=== PATIENT | male | born 1995 | race Two or more races ===

== ENCOUNTER 2021-04-05 08:00 | Outpatient (CLI) | payer SELFPAY | END 2021-04-05 23:59 | LOC: LAB.N 08:00 | PROVIDERS: ATTEND Nurse Practitioner | DX: L01.00 Impetigo, unspecified (principal) | CPT/HCPCS: 87070; 87205 ==

== ENCOUNTER 2022-05-02 12:49 | Outpatient (CLI) | payer OTHER ==
[2022-05-02 13:43] VITALS: BP 126/74
--- NOTE | 2022-05-02 13:43 | SLEEP CARE CONSULTATION ---
Information from patient questionnaire entered by Kevin Alcantar. I have reviewed and concur with the information entered by Kevin Alcantar. This document represents the service I personally performed and the decisions made by me, Mickie Boo ARNP. History of Present Illness Service Date and Time: 05/02/2022 1249 Reason for Visit: New patient Chief Complaint: reports: Snoring Date of Onset: 2-3 MONTHS Usual bedtime: 10-12PM Time it takes to fall asleep: 15-30MIN Snores at night: Yes Observed to quit breathing while asleep: No Sleeps alone due to snoring: No Number of times waking at night: 3-4 Reasons for waking at night: reports: Gasping for air, Bathroom, Other (UNKNOWN). denies: Choking, Snoring Toss, Turn, or Twitch while sleeping: Yes Recalls having dreams: Yes (rarely) Usually gets out of bed at: 615AM; weekends 09-1000 Feels refreshed in the morning: No (somewhat refreshed usually) Morning headache: Yes (1-2 times a week) Sleepy or fatigued during the day: Yes Ever fallen asleep while driving: No Takes day naps: Yes (1.5-2 hours; 3 times a week) Dreams during day naps: No Prior sleep studies: No Additional HPI information: I had the pleasure of seeing JODEE ABBOTT today regarding the possibility of him having a sleep disorder. His current complaint is snoring. He states he saw his doctor about trouble sleeping and he was referred here. He has trouble fall ing asleep at night. He has been drinking a "Sleepytime tea" and getting to sleep has improved. He is waking up 3-4 times a night and sometimes this is with heart "racing" and mild shortness of air which he feels could be anxiety related. He has been told that he snores but has not been told it is very loud. - Parasomnia Symptoms Ever been unable to move upon waking from sleep: Yes (comes and goes; 5 times every 6 months) Walks in sleep: No Talks in sleep: Yes Ever acted out dreams in sleep: Yes (once in [employer] camp he sat up in bed, said something and then layed down) Ever felt weak in the knees when startled or emotional: No Bothered by creepy, crawly, restless sensations in legs: Yes (during day, sedentary and wanting to move onto something else) Problems with memory or concentration: No Subjective Initial [place] Sleepiness Scale score: 9 (05/02/22) Past Medical History Past Medical History: reports: Other (Migraines) Social History The patient's occupation is a AM. Patient is Single and lives in . Have you smoked in the past 12 months: No Alcohol use: Yes Alcohol amount and frequency: 2-4 DRINKS A WEEK Caffeine use: Yes Caffeine amount and frequency: 1 DRINK DAILY Family History Family history of sleep disordered breathing: No Allergies and Home Medications Known drug allergies: No Drug allergies reviewed: Yes Home medication list reviewed: Yes Allergy and home medication list: Medications: Sumatriptan Vitamins Review of Systems Weight gain over past 5 years: 40 Cardiovascular: denies: high blood pressure Gastrointestinal: denies: heartburn Neurological: reports: headaches Psychiatric: denies: Attention Deficit Hyperactivity, anxiety, depression Ear/Nose/Throat: reports: wisdom teeth removed. denies: tonsillectomy Endocrine: denies: thyroid disease Musculoskeletal: reports: muscle pain or cramping Physical Exam Vital signs obtained and entered by: KEVIN Weldon MA Blood Pressure: 126/74 (LEFT ARM) Cuff size: regular Heart Rate: 76 O2 Saturation: 98 Height: 5 ft 9 in Weight: 185 lb 6.4 oz Body Mass Index: 27.3 BMI Classification: Overweight Neck circumference: 16.25 Mouth and throat: narrow oropharynx Soft palate: long Hard palate: normal Uvula: normal, long Uvula visualization: 25% Mallampati Class III Tongue: enlarged in size with teeth monk on lateral edges Tonsils: 2+ Neck: normal w/o lymphadenopathy or thyromegaly Heart: regular rate and rhythm, murmur (possible) Lungs: clear bilaterally Impression and Plan 1. Suspected Obstructive Sleep Apnea-Hypopnea Syndrome, as suggested by a history of loud and irregular snoring, morning headache, frequent awakening during the night and unrefreshed sleep. Narrow oropharynx and obesity are common predisposing factors for obstructive sleep apnea-hypopnea syndrome. I recommend proceeding to polysomnography to confirm the diagnosis and to assess severity. If the patient has significant sleep disordered breathing, a manual CPAP titration study will also be performed to find the optimal treatment pressure. I informed the patient of what the sleep studies involve and after some discussion, obtained agreement to proceed. The pathophysiology of obstructive sleep apnea-hypopnea syndrome was discussed with the patient and health risks of cardiovascular and cerebrovascular disease if not treated. Risks of drowsy driving discussed in detail and patient advised to avoid long distance driving and to line puller at the first sign of drowsiness. Patient agreed to plan. * Schedule polysomnography * Avoid long distance driving or driving when feeling sleepy. * Avoid alcohol, sedative and muscle relaxant around bedtime. * Attempt to lose weight. * Review instructions provided by trained office staff on how to prepare for the sleep study. * Return for follow-up after sleep study completed. Counseling Topics: Weight loss health impact Visit Type: In Office Time Spent with Patient (minutes): 31 Provider Statement: I spent 100% of the Face to Face Visit with the patient with greater than 50% spent counseling the patient and coordination of care.
== END 2022-05-02 12:50 | disposition home or self-care (01) ==
LOC: SC 12:49
PROVIDERS: ATTEND Nurse Practitioner Family
DX: R06.83 Snoring (principal); G47.8 Other sleep disorders; R53.83 Other fatigue; E66.3 Overweight; Z68.27 Body mass index [BMI] 27.0-27.9, adult
CPT/HCPCS: 99203; 99212

== ENCOUNTER 2022-06-07 09:28 | Outpatient (CLI) | payer OTHER | END 2022-06-07 09:29 | disposition home or self-care (01) | LOC: SC 09:28 | PROVIDERS: ATTEND Nurse Practitioner Family | DX: G47.33 Obstructive sleep apnea (adult) (pediatric) (principal) | CPT/HCPCS: 95806 ==

== ENCOUNTER 2022-06-20 09:16 | Outpatient (CLI) | payer OTHER ==
[2022-06-20 09:54] VITALS: BP 112/70
--- NOTE | 2022-06-20 09:54 | SLEEP CARE CONSULTATION ---
Information from patient questionnaire entered by Arcelia Alcantar. I have reviewed and concur with the information entered by Arcelia Alcantar. This document represents the service I personally performed and the decisions made by me, Mickie Boo ARNP. History of Present Illness Service Date and Time: 06/20/2022 0916 Initial [place] Sleepiness Scale score: 9 (05/02/22) Current [place] Sleepiness Scale score: 9 (06/20/22) Additional HPI information: JODEE ABBOTT returns for follow up and results of the recently performed home sleep study. I explained the pathophysiology behind obstructive sleep apnea. We then spent quite a bit of time discussing different treatment options. For mild obstructive sleep apnea, surgery and oral appliance are alternatives to nasal CPAP therapy but in moderate or severe cases, nasal CPAP is the most effective and reliable treatment. Because apnea is primarily in supine position, then positional management therapy could be effective. Methods discussed such as positioning with pillows, using a T-shirt with tennis balls in the back, or commercial products that have a pillow format on back to prevent supine sleep. I reviewed the impact of weight changes on sleep apnea and strongly recommended losing weight. After some discussion, the patient opted to go with the nasal CPAP therapy. Nasal autoCPAP set at 4-15 cmH20 will be ordered with rationale explained. A manual titration study will be ordered if unable to find optimal pressure with office adjustments. I explained how CPAP machine works and what to expect when using the machine. Using CPAP every night in order to get used to it was emphasized. Patient advised to put CPAP mask on before getting into bed so as not to fall asleep without CPAP. To assist acclimation to CPAP use, it could also be used for a short time during day while reading or watching TV. The patient was instructed to call the CPAP supplier to discuss any mechanical problem that may occur. If the mask given is uncomfortable or is difficult to keep on through the night even with adjustment, contact the CPAP supplier as many will replace with another mask style if notified before 30 days. If snoring or perceives is not getting enough air or too much air from the machine, notify this office. Patient counseled not drink alcohol less than 4 hours before bedtime as it can increase snoring and apnea. Patient was cautioned about risks of drowsy driving until sleepiness symptoms resolve. Patient denies drowsy driving. Sleep Study - Results Type of Sleep Study: Home sleep study (COMPLETED 06/07/22) Prior sleep studies: No Polysomnography/Home Sleep Study results: Physician Impression: The quality of the study is good. The length of the study is adequate (> 240 minutes). Please also see the tabulated and graphic data. 1. Obstructive Sleep Apnea-Hypopnea (ICD-10 G47.33), mild, with an AHI of 5.1/hr and yao SaO2 of 90%. During the study, the patient had 16 apneas (16 obstructive, 0 central, 0 mixed) and 26 hypopneas. The longest episode lasted 67.0 seconds. The respiratory events occurred almost exclusively during supine sleep (supine AHI was 6.2 and non-supine, 2.79). Allergies and Home Medications Known drug allergies: No Drug allergies reviewed: Yes Home medication list reviewed: Yes (no changes) Allergy and home medication list: Allergies No Known Drug Allergies Allergy (Verified 06/19/22 08:51) Review of Systems Review of systems same as previous: Yes ( no changes) Physical Exam Vital signs obtained and entered by: ARCELIA Weldon MA Blood Pressure: 112/70 (LEFT ARM) Cuff size: regular Heart Rate: 62 O2 Saturation: 99 Height: 5 ft 9 in Weight: 184 lb 6.4 oz Body Mass Index: 27.2 BMI Classification: Overweight Impression and Plan 1. Obstructive Sleep Apnea-Hypopnea Syndrome, mild, with lowest oxygen saturation of 90%. Obviously this is the cause of the patients symptoms of unrefreshed sleep, and excessive daytime sleepiness. Positive pressure therapy could benefit migraines. As mentioned above, the patient will be started on nasal autoCPAP therapy with pressure set at 4-15 cmH2O. Compliance guidelines also reviewed. A copy of compliance guidelines will be given for reference at check out. Because the apnea is more severe supine, I instructed to avoid sleeping supine using pillow positioning until able to start CPAP use. * Nasal auto CPAP therapy, pressure at 4-15 cm H2O. * Attempt to lose weight. * Avoid alcohol consumption near bedtime. * Avoid supine sleep until using CPAP. * The patient is again cautioned about driving until sleepiness completely resolves. * Return one month after CPAP obtained. I will assess response to therapy and compliance at that time. Counseling Topics: Weight loss health impact Visit Type: In Office Time Spent with Patient (minutes): 22 Provider Statement: I spent 100% of the Face to Face Visit with the patient with greater than 50% spent counseling the patient and coordination of care.
== END 2022-06-20 09:17 | disposition home or self-care (01) ==
LOC: SC 09:16
PROVIDERS: ATTEND Nurse Practitioner Family
DX: G47.33 Obstructive sleep apnea (adult) (pediatric) (principal); E66.3 Overweight; Z68.27 Body mass index [BMI] 27.0-27.9, adult
CPT/HCPCS: 99212; 99213

== ENCOUNTER 2022-08-15 09:30 | Outpatient (CLI) | payer OTHER ==
--- NOTE | 2022-08-15 16:12 | XRAY Report ---
PROCEDURE: Shoulder 3 View LT INDICATIONS: PAIN IN LEFT SHOULDER TECHNIQUE: 3 views of the shoulder were acquired. COMPARISON: None. FINDINGS: Bones: No fractures or dislocations. No suspicious bony lesions. Visualized ribs appear intact. Soft tissues: No suspicious soft tissue calcifications. IMPRESSION: Unremarkable left shoulder radiographs Reviewed by: Nguyễn Callejas MD on 08/15/2022 3:11 PM AKDT Approved by: Nguyễn Callejas MD on 08/15/2022 3:11 PM AKDT Station ID: [id number]
== END 2022-08-15 09:45 | disposition home or self-care (01) ==
LOC: DI.N 09:30
PROVIDERS: ATTEND Emergency Medicine
DX: M25.512 Pain in left shoulder (principal)

== ENCOUNTER 2022-10-14 02:14 | Emergency (ER) | payer OTHER ==
--- OUTSIDE RECORDS SUMMARY | 2022-10-14 02:24 | EXTERNAL MEDICAL SUMMARY RPT | Continuity of Care Document ---
Author Name Unknown Address [address] [place] [address] Phone Organization [facility] Address [address] [place] [address] Phone Care Team Providers Care Plastic Mixer Name Role Phone Unavailable Unavailable Unavailable Luci Lomax, Chuy Unavailable Unavailable Problems date description facility 2022-08-15 00:00 Pain of left shoulder joint All 2022-08-15 00:00 Recurrent dislocation of should er region All 2022-08-15 00:00 Recurrent dislocation of joint of shoulder region All 2022-08-15 00:00 Pain in joint involving shoulde r region All 2022-08-15 00:00 Recurrent dislocation, unspecif ied shoulder All 2022-08-15 00:00 Pain in left shoulder All 2022-08-28 09:11 Unspecified dislocat ion of unspecified shoulder joint, [facility] Procedures date description facility 2022-08-15 00:00 Visit Code Hold All 2022-08-15 00:00 XR SHOULDER 2-3 VIEW All Results/Labs test date facility value unit notes Vital Signs date measurement value units 2022-08-15 00:00 BMI 26.23 kg/m2 2022-08-15 00:00 BP_diastolic 79 mmHg 2022-08-15 00:00 BP_systolic 132 mmHg 2022-08-15 00:00 heart_rate 66 /min 2022-08-15 00:00 height_metric 175.26 cm 2022-08-15 00:00 height_standard 69 in 2022-08-15 00:00 respiration_rate 16 /min 2022-08-15 00:00 temperature_metric 36.61 C 2022-08-15 00:00 temperature_standard 97.9 F 2022-08-15 00:00 weight_metric 80.29 kg 2022-08-15 00:00 weight_standard 177 lb
[2022-10-14 02:26] VITALS: BP 136/94
--- NOTE | 2022-10-14 03:13 | ED Physician Documentation ---
PD HPI SKIN - Stated complaint Stated Complaint: BLISTER RT HAND - Chief complaint Chief Complaint: Wound - History obtained from History obtained from: Patient - Additional information Additional information: HPI from patient. 5 days ago, patient had cryotherapy for cutaneous warts to several sites on bilateral hands/fingers. Presents to ED at this time due to bulla (from cryotherapy) over his right thenar eminence having become taut, painful, and surrounded by erythema and swelling. Denies fever. Review of Systems Constitutional: denies: Fever Skin: reports: Rash Musculoskeletal: reports: Extremity pain, Extremity swelling Neurologic: denies: Focal weakness, Numbness PD PAST MEDICAL HISTORY - Past Medical History Past Medical History: No - Present Medications Home Medications: Ambulatory Orders Medication Instructions Recorded Confirmed Ashwagandha Root Extract See Rx Instructions .ROUTE .COMPLEX 05/02/22 06/20/22 [Ashwagandha] Cholecalciferol [Vitamin D3] See Rx Instructions .ROUTE .COMPLEX 05/02/22 06/20/22 Multivitamin See Rx Instructions .ROUTE .COMPLEX 05/02/22 06/20/22 [place]-3/Dha/Epa/Fish Oil [Fish Oil See Rx Instructions .ROUTE .COMPLEX 05/02/22 06/20/22 1,000 mg Softgel] Zinc Gluconate [Zinc] See Rx Instructions .ROUTE .COMPLEX 05/02/22 06/20/22 Doxycycline [Vibramycin] 100 mg PO BID #14 tablet 10/14/22 - Allergies Allergies/Adverse Reactions: Allergies Allergy/AdvReac Type Severity Reaction Status Date / Time No Known Drug Allergies Allergy Verified 08/15/22 14:25 PD ED PE NORMAL - Vitals Vital signs reviewed: Yes - General General: Alert and oriented X 3, No acute distress, Well developed/nourished PD ED PE EXPANDED - Extremities MAXIM UE/Hands Visual: 1 - rash, swelling (large, tense bulla with opaque yellow fluid. there is surrounding, confluent erythema and swelling surrounding the base of the bulla over the thenar eminence), tenderness Results - Vitals Vitals: Oxygen O2 Source Room air PD Medical Decision Making - ED course Complexity details: considered differential, d/w patient ED course: Several bullae on bilateral hands/fingers. There is appearance of cellulitis surrounding the largest bulla, which is on the right hand over the thenar eminence, and this is unroofed with a #11 blade scalpel. He is given doxycycline with rx for same. Return precautions discussed, advised to follow up in 2-3 days Departure - Departure Disposition: 01 Home, Self Care Clinical Impression: Cellulitis Qualifiers: Site of cellulitis: extremity Site of cellulitis of extremity: upper extremity Laterality: right Qualified Code(s): L03.113 - Cellulitis of right upper limb Condition: Good Instructions: ED Infec Skin Cellulitis Prescriptions: Doxycycline [Vibramycin] 100 mg PO BID #14 tablet Comments: On exam, it appears that the area on your right hand where cryotherapy was applied has become infected (cellulitis). You are given the first dose of an antibiotic (doxycycline) in the emergency department, as well as a dose of ibuprofen for the pain. I have electronically submitted a prescription for a 1 week course of the antibiotic to the [facility] pharmacy in [place]. You should contact your primary care provider's office on Sunday when they open to arrange for a follow-up appointment for reevaluation; ideally, you should be reevaluated in a 3 to 5-day timeframe from today. Forms: PCP List Discharge Date/Time: 10/14/22 04:21
[2022-10-14] MEDS ORDERED: DOXYCYCLINE 100 MG TABLET PO STA (03:29)
[2022-10-14] MEDS ORDERED: IBUPROFEN 600 MG TABLET PO STA (03:54)
[2022-10-14] MEDS ORDERED: BACITRACIN ZINC OINT 1 PACKET TOP STA (03:55)
== END 2022-10-14 04:21 | disposition home or self-care (01) ==
LOC: ED 02:14
DX: L03.113 Cellulitis of right upper limb (principal)
CPT/HCPCS: 99282; 99283; A9270

== ENCOUNTER 2022-10-31 08:00 | Outpatient (CLI) | payer OTHER ==
--- NOTE | 2022-10-31 16:00 | XRAY Report ---
PROCEDURE: Tib/Fib LT INDICATIONS: REPETITIVE STRAIN INJURY OF LEFT LOWER LEG TECHNIQUE: 2 views of the tibia and fibula were acquired. COMPARISON: None. FINDINGS: Bones: No fractures or dislocations. No suspicious bony lesions. Soft tissues: No suspicious soft tissue calcifications or masses. IMPRESSION: No visualized acute fracture or dislocation. However, occult injury cannot be excluded. Recommend silvia rt interval imaging follow-up in 7-10 days as clinically indicated for additional evaluation. Reviewed by: Amber Miramontes MD on 10/31/2022 3:58 PM PDT Approved by: Amber Miramontes MD on 10/31/2022 3:58 PM PDT Station ID: [id number]
== END 2022-10-31 23:59 | disposition home or self-care (01) ==
LOC: DI.S 08:00
PROVIDERS: ATTEND Physician Assistant Medical
DX: M70.962 Unspecified soft tissue disorder related to use, overuse and pressure, left lower leg (principal)

== ENCOUNTER 2023-05-11 12:50 | Emergency (ER) | payer OTHER ==
[2023-05-11 13:17] VITALS: BP 147/68; O2SAT 99
--- NOTE | 2023-05-11 13:42 | ED Physician Documentation ---
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 He recently started a new job in the [employer] 2 weeks ago and wears a respirator most of the day. Also works around chemical fumes. He states that this improves when he leaves work and goes home. [place]. Patient is currently asymptomatic. No fevers. No chills. No cough. No congestion. No history of young cardiac disease. Patient is on any medications at home. Does not smoke. Review of Systems Constitutional: denies: Fever, Chills GI: denies: Vomiting Skin: denies: Rash Musculoskeletal: denies: Neck pain, Back pain Neurologic: denies: Headache PD PAST MEDICAL HISTORY - Past Medical History Past Medical History: Yes Neuro: Migraines - Past Surgical History Past Surgical History: Yes Ortho: Shoulder arthroplasty - Present Medications Home Medications: Ambulatory Orders Medication Instructions Recorded Confirmed Ashwagandha Root Extract See Rx Instructions .ROUTE .COMPLEX 05/02/22 06/20/22 [Ashwagandha] Cholecalciferol [Vitamin D3] See Rx Instructions .ROUTE .COMPLEX 05/02/22 06/20/22 Multivitamin See Rx Instructions .ROUTE .COMPLEX 05/02/22 06/20/22 [place]-3/Dha/Epa/Fish Oil [Fish Oil See Rx Instructions .ROUTE .COMPLEX 05/02/22 06/20/22 1,000 mg Softgel] Zinc Gluconate [Zinc] See Rx Instructions .ROUTE .COMPLEX 05/02/22 06/20/22 Doxycycline [Vibramycin] 100 mg PO BID #14 tablet 10/14/22 Albuterol Sulf [Ventolin Hfa 1 - 2 puffs INH Q4HR PRN #1 each 05/11/23 Inhaler] - Allergies Allergies/Adverse Reactions: Allergies Allergy/AdvReac Type Severity Reaction Status Date / Time No Known Drug Allergies Allergy Verified 05/11/23 13:10 - Social History Does the pt smoke?: No Smoking Status: Never smoker Does the pt drink ETOH?: Yes Does the pt have substance abuse?: No - Immunizations Immunizations are current?: Yes - POLST Patient has POLST: No PD ED PE NORMAL - Vitals Vital signs reviewed: Yes - General General: Alert and oriented X 3, No acute distress - HEENT HEENT: PERRL, Moist mucous membranes - Neck Neck: Supple, no meningeal sign - Cardiac Cardiac: RRR, Strong equal pulses - Respiratory Respiratory: No respiratory distress, Other (Mild wheeze bilaterally) - Abdomen Abdomen: Soft, Non tender, Non distended - Derm Derm: Warm and dry - Extremities Extremities: No edema, No calf tenderness / cord - Neuro Neuro: Alert and oriented X 3 - Psych Psych: Normal mood, Normal affect Results - Vitals Vitals: Vital Signs - 24 hr 05/11/23 05/11/23 13:05 13:57 Temperature 36.4 C L Heart Rate 87 82 Respiratory 20 18 Rate Blood Pressure 147/68 H O2 Saturation 99 Oxygen O2 Source Room air - EKG (time done) 1308 EKG releavant findings:: EKG personally interpreted by author of this note. Relevant findings are: Rate: Rate (enter#) (68) Rhythm: NSR [place]: Normal Intervals: Normal [place] QRS: Normal Ischemia: Other (flat twaves) PD Medical Decision Making - ED course Complexity details: reviewed results, re-evaluated patient, considered differential (No ST elevation HI, no aortic dissection, no PE, no tension pneumothorax, no aortic aneurysm), d/w patient ED course: 27-year-old male with atypical chest pain. Nonradiating. Not related to exertion. Possibly related to having to wear a respirator for approximately 8 hours/day. Also could be due to fumes. Will try an inhaler for home. No evidence of ACS. No evidence of PE. He does feel somewhat better after albuterol here although he is not really having symptoms here. [place]. Patient counseled regarding signs and symptoms for which I believe and urgent re-evaluation would be necessary. Patient with good understanding of and agreement to plan and is comfortable going home at this time This document was made in part using voice recognition software. While efforts are made to proofread this document, sound alike and grammatical errors may occur. Departure - Departure Disposition: Home, Self Care Clinical Impression: Atypical chest pain Condition: Good Instructions: ED Chest Pain Atypical Unkn Cause Follow-Up: DARIEN CHANG, [Primary Care Provider] - Within 1 week Prescriptions: Albuterol Sulf [Ventolin Hfa Inhaler] 1 - 2 puffs INH Q4HR PRN #1 each PRN Reason: Shortness Of Air/Wheezing Comments: Your prescription was sent to [facility] in [place]. Please follow-up with your doctor for further care. Please return if you worsen. Will try you on an inhaler in case you have recurrence of chest tightness and difficulty breathing. Forms: PCP List Discharge Date/Time: 05/11/23 14:21
[2023-05-11] MEDS: ALBUTEROL NEB 2.5 MG/3 ML INH STA (14:08)
== END 2023-05-11 14:21 | disposition home or self-care (01) ==
LOC: ED 12:50
DX: R07.89 Other chest pain (principal); R06.2 Wheezing; Z79.899 Other long term (current) drug therapy
CPT/HCPCS: 93005; 94640; 94664; 99283; 99284

== ENCOUNTER 2023-11-10 08:00 | Outpatient (CLI) | payer OTHER | END 2023-11-10 23:59 | disposition home or self-care (01) | LOC: LAB.N 08:00 | PROVIDERS: ATTEND Nurse Practitioner | DX: R07.0 Pain in throat (principal) | CPT/HCPCS: 87070 ==